=== PATIENT | female | born 1975 | race Hispanic/Latino ===

== ENCOUNTER 2017-12-30 17:57 | Emergency (ER) | payer OTHER ==
[2017-12-30] MEDS ORDERED: ASPIRIN PO ONE (18:17)
[2017-12-30] MEDS ORDERED: MORPHINE IV ONE ×3 (18:33→19:35)
[2017-12-30] MEDS ORDERED: ZOFRAN IV ONE (18:33)
--- NOTE | 2017-12-30 18:38 | Emergency Department Report ---
ED Chest Pain HPI - General Chief Complaint: Chest Pain Stated Complaint: CHESTPAIN Time Seen by Provider: 12/30/17 18:26 Source: patient Mode of arrival: Ambulatory Limitations: No Limitations - History of Present Illness Initial Comments: 42-year-old female with a history of hiatal hernia presents to the hospital with complaints of sudden onset of substernal chest pain. 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 Pain started 30-40 minutes prior to arrival, located in the mid sternum, moderate in intensity, dull, and intermittent. Associated left arm paresthesias. No aggravating reported. Chest pain feels better with stretching her chest wall. Positive associated nausea. She denies vomiting, shortness of breath, or diaphoresis. Patient quit smoking 10 years ago. She has never had a stress test, history of PEs or DVT. No recent travel reported. - Related Data Home Medications Medication Instructions Recorded Confirmed Last Taken Vits96/Iron Fum/Folic 1 each PO DAILY 12/27/13 12/27/13 12/27/13 [ Tablet] Previous Rx's Medication Instructions Recorded Last Taken Type Ibuprofen [Motrin] 800 mg PO Q8HR PRN #30 tablet 12/31/17 Unknown Rx oxyCODONE /ACETAMINOPHEN [Percocet 1 tab PO Q6HR PRN #20 tablet 12/31/17 Unknown Rx 5/325] Allergies Allergy/AdvReac Type Severity Reaction Status Date / Time promethazine AdvReac Unknown Verified 12/27/13 17:37 Heart Score - HEART Score History: Slightly suspicious EKG: Normal Age: < 45 Risk factors: No known risk factors Troponin: < normal limit HEART Score: 0 ED Review of Systems ROS: Stated complaint: CHESTPAIN Other details as noted in HPI Comment: All other systems reviewed and negative Other: Constitutional: No fevers chills Eyes: No eye pain visual changes ENT: No ear pain or throat pain Neck: Denies pain Respiratory: Denies cough wheezing shortness of breath Cardiovascular: As per HPI GI: Denies abdominal pain, vomiting, diarrhea : Denies dysuria, urinary frequency, or urgency Musculoskeletal: Denies back pain, joint swelling Skin: Denies rash, lesions, erythema Neurologic: Denies headache, numbness, weakness Psychiatric: Denies suicidal ideation, hallucinations ED Past Medical Hx - Past Medical History Previous Medical History?: No Additional medical history: - Surgical History Past Surgical History?: No - Social History Smoking Status: Never Smoker Substance Use Type: None - Medications Home Medications: Home Medications Medication Instructions Recorded Confirmed Last Taken Type Vits96/Iron Fum/Folic 1 each PO DAILY 12/27/13 12/27/13 12/27/13 History [ Tablet] Ibuprofen [Motrin] 800 mg PO Q8HR PRN #30 tablet 12/31/17 Unknown Rx oxyCODONE /ACETAMINOPHEN [Percocet 1 tab PO Q6HR PRN #20 tablet 12/31/17 Unknown Rx 5/325] ED Physical Exam - General Limitations: No Limitations - Other Other exam information: General: No limitations, patient is alert in no acute distress Head exam: Atraumatic, normocephalic Eyes exam: Normal appearance ENT: Moist mucous membrane, normal oropharynx Neck exam: Normal inspection, full range of motion, no meningismus nontender Respiratory exam: Clear to auscultation bilateral, no wheezes, rales, crackles Cardiovascular: Normal rate and rhythm, normal heart sounds, chest wall nontender Abdomen: Soft, nondistended, and nontender, with normal bowel sounds, no rebound, or guarding Extremity: Full range of motion normal inspection no deformity, mo calf tenderness or edema Back: Normal Inspection, full range of motion, no tenderness Neurologic: Alert, oriented x3, cranial nerves intact, no motor or sensory deficit Psychiatric: normal affect, normal mood Skin: Warm, dry, intact ED Course Vital Signs 12/30/17 12/30/17 12/30/17 18:10 18:15 18:30 Temperature Pulse Rate 63 70 64 Respiratory 22 12 12 Rate Blood Pressure 123/80 116/79 Blood Pressure [Left] O2 Sat by Pulse Oximetry 12/30/17 12/30/17 12/30/17 18:45 19:00 19:05 Temperature 98.1 F Pulse Rate 66 66 60 Respiratory 14 17 20 Rate Blood Pressure 117/87 119/83 Blood Pressure 141/86 [Left] O2 Sat by Pulse 100 Oximetry 12/30/17 12/30/17 12/30/17 19:15 19:30 19:45 Temperature Pulse Rate 62 66 82 Respiratory 13 13 13 Rate Blood Pressure 113/81 113/81 121/75 Blood Pressure [Left] O2 Sat by Pulse Oximetry 12/30/17 12/30/17 12/30/17 19:47 20:00 20:15 Temperature Pulse Rate 65 60 Respiratory 16 10 L 12 Rate Blood Pressure 105/68 100/72 Blood Pressure [Left] O2 Sat by Pulse Oximetry 12/30/17 12/30/17 12/30/17 20:22 20:27 20:30 Temperature 98.7 F Pulse Rate 75 Respiratory 12 13 Rate Blood Pressure 96/75 Blood Pressure [Left] O2 Sat by Pulse 100 Oximetry 12/30/17 12/30/17 12/30/17 20:37 20:45 20:49 Temperature Pulse Rate 67 Respiratory 16 13 16 Rate Blood Pressure 110/75 Blood Pressure [Left] O2 Sat by Pulse Oximetry 12/30/17 12/30/17 12/30/17 21:00 21:07 21:15 Temperature Pulse Rate 63 64 Respiratory 8 L 16 11 L Rate Blood Pressure 105/70 108/69 Blood Pressure [Left] O2 Sat by Pulse Oximetry 12/30/17 12/30/17 12/30/17 21:19 21:30 21:39 Temperature Pulse Rate 62 Respiratory 16 9 L 16 Rate Blood Pressure 102/67 Blood Pressure [Left] O2 Sat by Pulse Oximetry 12/30/17 12/30/17 12/30/17 21:45 22:00 22:15 Temperature Pulse Rate 61 73 70 Respiratory 8 L 15 11 L Rate Blood Pressure 99/63 105/72 102/68 Blood Pressure [Left] O2 Sat by Pulse Oximetry 12/30/17 12/30/17 12/30/17 22:30 22:39 22:45 Temperature Pulse Rate 64 66 Respiratory 13 12 11 L Rate Blood Pressure 98/64 113/79 Blood Pressure [Left] O2 Sat by Pulse Oximetry 12/30/17 12/30/17 12/30/17 23:00 23:15 23:30 Temperature Pulse Rate 67 61 58 L Respiratory 11 L 11 L 12 Rate Blood Pressure 103/73 102/59 101/57 Blood Pressure [Left] O2 Sat by Pulse Oximetry 12/30/17 12/31/17 23:45 00:57 Temperature Pulse Rate 67 Respiratory 13 15 Rate Blood Pressure 103/60 Blood Pressure [Left] O2 Sat by Pulse Oximetry - Reevaluation(s) Reevaluation #1: 12/30/17 18:38 Patient received aspirin, morphine, and Zofran ordered - Consultations Consultation #1: 12/31/17 01:21 Case d/w Dr Titi [facility], informed pt will be d/[facility] home. Encouraged to f/u with [facility] FABIAN score - Fabian Score Age > 65: (0) No Aspirin use within the Past 7 Days: (0) No 3 or more CAD Risk Factors: (0) No 2 or more Angina events in past 24 hrs: (0) No Known CAD with more than 50% Stenosis: (0) No Elevated Cardiac Markers: (0) No ST Deviation Greater than 0.5mm: (0) No FABIAN Score: 0 ED Medical Decision Making - Lab Data Result diagrams: 12/30/17 18:31 18 18:31 Lab Results 12/30/17 12/30/17 12/30/17 Range/Units 18:31 18:31 18:31 WBC 12.5 H (4.5-11.0) K/mm3 RBC 4.41 (3.65-5.03) M/mm3 Hgb 13.3 (10.1-14.3) gm/dl Hct 39.3 (30.3-42.9) % MCV 89 (79-97) fl MCH 30 (28-32) pg MCHC 34 (30-34) % RDW 13.1 L (13.2-15.2) % Plt Count 284 (140-440) K/mm3 Lymph % (Auto) 31.3 (13.4-35.0) % [place] % (Auto) 6.2 (0.0-7.3) % Eos % (Auto) 1.0 (0.0-4.3) % Baso % (Auto) 0.6 (0.0-1.8) % Lymph # 3.9 (1.2-5.4) K/mm3 [place] # 0.8 (0.0-0.8) K/mm3 Eos # 0.1 (0.0-0.4) K/mm3 Baso # 0.1 (0.0-0.1) K/mm3 Seg Neutrophils % 60.9 (40.0-70.0) % Seg Neutrophils # 7.6 (1.8-7.7) K/mm3 PT 12.3 (12.2-14.9) Sec. INR 0.87 (0.87-1.13) D-Dimer 331.12 H (0-234) ng/mlDDU Sodium 140 (137-145) mmol/L Potassium 4.0 (3.6-5.0) mmol/L Chloride 100.9 (98-107) mmol/L Carbon Dioxide 24 (22-30) mmol/L Anion Gap 19 mmol/L BUN 16 (7-17) mg/dL Creatinine 0.7 (0.7-1.2) mg/dL Estimated GFR > 60 ml/min BUN/Creatinine Ratio 23 % Glucose 89 (65-100) mg/dL Calcium 9.5 (8.4-10.2) mg/dL Troponin T < 0.010 (0.00-0.029) ng/mL Triglycerides (2-149) mg/dL Cholesterol (50-199) mg/dL LDL Cholesterol Direct (50-130) mg/dL HDL Cholesterol (40-59) mg/dL Cholesterol/HDL Ratio % HCG, Quant (0-4) mIU/mL 12/30/17 12/30/17 12/30/17 Range/Units 18:31 18:31 21:00 WBC (4.5-11.0) K/mm3 RBC (3.65-5.03) M/mm3 Hgb (10.1-14.3) gm/dl Hct (30.3-42.9) % MCV (79-97) fl MCH (28-32) pg MCHC (30-34) % RDW (13.2-15.2) % Plt Count (140-440) K/mm3 Lymph % (Auto) (13.4-35.0) % [place] % (Auto) (0.0-7.3) % Eos % (Auto) (0.0-4.3) % Baso % (Auto) (0.0-1.8) % Lymph # (1.2-5.4) K/mm3 [place] # (0.0-0.8) K/mm3 Eos # (0.0-0.4) K/mm3 Baso # (0.0-0.1) K/mm3 Seg Neutrophils % (40.0-70.0) % Seg Neutrophils # (1.8-7.7) K/mm3 PT (12.2-14.9) Sec. INR (0.87-1.13) D-Dimer (0-234) ng/mlDDU Sodium (137-145) mmol/L Potassium (3.6-5.0) mmol/L Chloride (98-107) mmol/L Carbon Dioxide (22-30) mmol/L Anion Gap mmol/L BUN (7-17) mg/dL Creatinine (0.7-1.2) mg/dL Estimated GFR ml/min BUN/Creatinine Ratio % Glucose (65-100) mg/dL Calcium (8.4-10.2) mg/dL Troponin T < 0.010 (0.00-0.029) ng/mL Triglycerides 132 (2-149) mg/dL Cholesterol 193 (50-199) mg/dL LDL Cholesterol Direct 128 (50-130) mg/dL HDL Cholesterol 39 L (40-59) mg/dL Cholesterol/HDL Ratio 4.94 % HCG, Quant < 2 (0-4) mIU/mL 12/31/17 Range/Units 00:46 WBC (4.5-11.0) K/mm3 RBC (3.65-5.03) M/mm3 Hgb (10.1-14.3) gm/dl Hct (30.3-42.9) % MCV (79-97) fl MCH (28-32) pg MCHC (30-34) % RDW (13.2-15.2) % Plt Count (140-440) K/mm3 Lymph % (Auto) (13.4-35.0) % [place] % (Auto) (0.0-7.3) % Eos % (Auto) (0.0-4.3) % Baso % (Auto) (0.0-1.8) % Lymph # (1.2-5.4) K/mm3 [place] # (0.0-0.8) K/mm3 Eos # (0.0-0.4) K/mm3 Baso # (0.0-0.1) K/mm3 Seg Neutrophils % (40.0-70.0) % Seg Neutrophils # (1.8-7.7) K/mm3 PT (12.2-14.9) Sec. INR (0.87-1.13) D-Dimer (0-234) ng/mlDDU Sodium (137-145) mmol/L Potassium (3.6-5.0) mmol/L Chloride (98-107) mmol/L Carbon Dioxide (22-30) mmol/L Anion Gap mmol/L BUN (7-17) mg/dL Creatinine (0.7-1.2) mg/dL Estimated GFR ml/min BUN/Creatinine Ratio % Glucose (65-100) mg/dL Calcium (8.4-10.2) mg/dL Troponin T < 0.010 (0.00-0.029) ng/mL Triglycerides (2-149) mg/dL Cholesterol (50-199) mg/dL LDL Cholesterol Direct (50-130) mg/dL HDL Cholesterol (40-59) mg/dL Cholesterol/HDL Ratio % HCG, Quant (0-4) mIU/mL - EKG Data -: EKG Interpreted by Me (sinus arrhythmia) EKG shows normal: sinus rhythm, axis (87), QRS complexes (83), ST-T waves (no ST elevation NM) Rate: normal (68) - EKG Data When compared to previous EKG there are: previous EKG unavailable 12/31/17 01:46 Repeat EKG in the ED shows normal sinus as well without any ST-T changes - Radiology Data Radiology results: report reviewed Bed by radiologist Chest x-ray: No acute processes CT angiogram chest: No acute process. 4 mm nodule right upper lobe. 3-6 month follow-up recommended - Medical Decision Making Patient's pain is atypical. Although not reproducible on exam it is affected by movement and certain positions. Patient also lacks significant associated symptoms. She has been more active playing with her child outside and perhaps that may have exacerbated her chest pain. Patient has had 3 negative cardiac enzymes, EKGs unchanged, no cardiac risk factors, and negative CT angiogram for PE or dissection. No acute emergent cause of chest pain identified at this time. Patient will be treated symptomatically with pain medication. - Differential Diagnosis NM, unstable angina, PE muscular skeletal pain, costochondritis, atypica Critical Care Time: No Critical care attestation.: If time is entered above; I have spent that time in minutes in the direct care of this critically ill patient, excluding procedure time. ED Disposition Clinical Impression: Atypical chest pain Disposition: DC-01 TO HOME OR SELFCARE Is pt being admited?: No Does the pt Need Aspirin: No Condition: Stable Instructions: Chest Pain (ED) Additional Instructions: Take the medication as prescribed. Return if symptoms worsen. Follow up with your [facility] doctor within 2-3 days. Your CAT scan incidentally shows a nodule in your right upper lung. You have been provided a copy of the report.You need to follow with your primary care doctor for follow-up CAT scan as recommended in 3-6 months Prescriptions: Ibuprofen [Motrin] 800 mg PO Q8HR PRN #30 tablet PRN Reason: Pain oxyCODONE /ACETAMINOPHEN [Percocet 5/325] 1 tab PO Q6HR PRN #20 tablet PRN Reason: Pain Referrals: Your, tracey ARANGO [Other] - 2-3 Days Time of Disposition: 01:46
[2017-12-30 18:49] LABS: Basophils # (Auto) 0.1 K/mm3 (0.0-0.1); Basophils % (Auto) 0.6 % (0.0-1.8); Eosinophils # (Auto) 0.1 K/mm3 (0.0-0.4); Hematocrit 39.3 % (30.3-42.9); Hemoglobin 13.3 gm/dl (10.1-14.3); Lymphocytes # (Auto) 3.9 K/mm3 (1.2-5.4); Lymphocytes % (Auto) 31.3 % (13.4-35.0); Mean Corpuscular HGB Conc 34 % (30-34); Mean Corpuscular Hemoglobin 30 pg (28-32); Mean Corpuscular Volume 89 fl (79-97); Monocytes # (Auto) 0.8 K/mm3 (0.0-0.8); Monocytes % (Auto) 6.2 % (0.0-7.3); Platelet Count 284 K/mm3 (140-440); Red Blood Count 4.41 M/mm3 (3.65-5.03); Red Cell Distribution Width 13.1 % (13.2-15.2)
[2017-12-30 18:57] LABS: INR 0.87 (0.87-1.13)
[2017-12-30 19:11] LABS: BUN/Creatinine Ratio 23; Blood Urea Nitrogen 16 mg/dL (7-17); Calcium 9.5 mg/dL (8.4-10.2); Hemolysis Index 14
[2017-12-30] MEDS ORDERED: NACL ONE (19:14)
[2017-12-30 19:15] LABS: Chol/HDL Ratio 4.94 %
[2017-12-30] MEDS ORDERED: TORADOL IV ONE (19:35)
--- NOTE | 2017-12-30 20:52 | Cat Scan Report ---
FINAL REPORT PROCEDURE: CT ANGIO CHEST TECHNIQUE: Computerized tomographic angiography of the chest was performed after the IV injection of iodinated nonionic contrast including image processing. The image data was postprocessed using 2-dimensional multiplanar reformatted (MPR) and 3-dimensional (MIP and/or volume rendered) techniques. HISTORY: cp, elevated ddimer COMPARISON: No prior studies are available for comparison. FINDINGS: Heart and pericardium: Normal. Thoracic aorta: Normal. Pulmonary vasculature: Normal. Lymph nodes: No enlarged thoracic lymph nodes. Lungs: 4 millimeter nodule is noted in the right upper lobe as visualized image 43 of series 3. There are no confluent infiltrates. Pleural spaces are clear. Hilar structures are within normal limits. Aorta is of normal caliber. Visualized thyroid demonstrates normal density. There is no lymphadenopathy.. Pleural space: No effusion, thickening, or pneumothorax. Musculoskeletal structures: No significant abnormality. Upper abdominal structures: No significant abnormality. IMPRESSION: No acute pulmonary process. 4 millimeter nodule right upper lobe. 3 to six-month follow-up study is recommended.
--- NOTE | 2017-12-30 21:03 | XRay Report ---
FINAL REPORT EXAM: XR CHEST 1V AP HISTORY: CP TECHNIQUE: AP portable view of the chest PRIORS: None. FINDINGS: Lines, tubes, and devices: N/A Lungs and pleura: Trachea is normal in position. Lungs are clear of infiltrate, pleural effusion, vascular congestion, or pneumothorax. Cardiomediastinal silhouette: Cardiac and mediastinal silhouettes are unremarkable. Other: Bony structures are intact. IMPRESSION: No acute cardiopulmonary process seen.
[2017-12-30] MEDS ORDERED: NORCO 5/325 PO ONE (21:19)
[2017-12-31] MEDS ORDERED: PERCOCET 5/325 PO ONE (00:49)
[2017-12-31 01:54] VITALS: BP 111/66
== END 2017-12-31 02:02 | disposition home or self-care (01) ==
LOC: ED 17:57
DX: R07.89 Other chest pain (principal); Z88.8 Allergy status to other drugs, medicaments and biological substances
CPT/HCPCS: 36415; 71045; 71275; 80048; 80061; 84484; 84702; 85025; 85379; 85610; 93005; 93010; 96374; 96375; 96376; 99285; J1885; J2270; J2405; Q9967

== ENCOUNTER 2019-10-03 10:10 | Emergency (ER) | payer OTHER ==
[2019-10-03 10:47] LABS: Basophils # (Auto) 0.1 K/mm3 (0.0-0.1); Basophils % (Auto) 0.7 % (0.0-1.8); Eosinophils # (Auto) 0.2 K/mm3 (0.0-0.4); Eosinophils % (Auto) 2.4 % (0.0-4.3); Hematocrit 38.1 % (30.3-42.9); Hemoglobin 12.8 gm/dl (10.1-14.3); Lymphocytes # (Auto) 1.4 K/mm3 (1.2-5.4); Lymphocytes % (Auto) 20.5 % (13.4-35.0); Mean Corpuscular HGB Conc 34 % (30-34); Mean Corpuscular Volume 92 fl (79-97); Monocytes # (Auto) 0.5 K/mm3 (0.0-0.8); Platelet Count 310 K/mm3 (140-440); Red Blood Count 4.16 M/mm3 (3.65-5.03); Red Cell Distribution Width 13.1 % (13.2-15.2)
--- NOTE | 2019-10-03 10:48 | XRay Report ---
CHEST 1 VIEW 10/03/2019 10:31 AM INDICATION / CLINICAL INFORMATION: Chest Pain. COMPARISON: 12/30/2017 FINDINGS: SUPPORT DEVICES: None. HEART / MEDIASTINUM: No significant abnormality. LUNGS / PLEURA: No significant pulmonary or pleural abnormality. No pneumothorax. ADDITIONAL FINDINGS: No significant additional findings. IMPRESSION: 1. No acute findings. Signer Name: Breezy Pacheco MD Signed: 10/03/2019 10:44 AM Workstation Name: [id number]
[2019-10-03 10:56] LABS: INR 1.27 (0.87-1.13)
[2019-10-03 10:57] LABS: Partial Thromboplastin Time 34.4 Sec. (24.2-36.6)
--- NOTE | 2019-10-03 11:04 | Emergency Department Report ---
ED Chest Pain HPI - General Chief Complaint: Chest Pain Stated Complaint: CHEST PAIN Time Seen by Provider: 10/03/19 10:27 Source: patient Mode of arrival: Wheelchair Limitations: No Limitations - History of Present Illness Initial Comments: Patient is a 43-year-old female Emergency room with complaints of chest pain. Patient states she is having bilateral chest pain. Patient states she is also having left arm numbness. Patient states her chest pain is better with rest. Patient states her chest pain is worse with deep breath, exertion, movement and palpation of the chest wall. Patient states the pain is a 10 out of 10. Patient states she was diagnosed with bilateral pulmonary was at [facility] and discharged 2 days ago. Patient states she was in the hospital for 2 days. Patient denies shortness of breath. Patient denies cough. Patient denies fever chills. Patient states after being discharged she returned to work the very next day. Patient states she is on Eliquise and is taking it as instructed. Patient states she brought some of her results from [facility]. Patient has a copy of her CTA chest and her echo. CTA of chest results impression: #1. Study of positive bilateral acute pulmonary there are filling defects within the bilateral lower lobe pulmonary arteries extending into the segmental branches. There is occlusive thrombus within the posterior basal segment and the subsegmental branches of the right lower lobe. #2. Small right pleural effusion and developing pulmonary infarction in the right lower lobe. #3. No central sidled was identified nose CT evidence of right heart strain. Echo results: LV normal size. LV wall thickness normal. LV wall motion normal. LV EF is 67%. LV EF normal. Normal LV diastolic function. MD Complaint: chest pain -: Sudden Onset: during rest Pain Location: left chest, right chest Severity: severe Severity scale (0 -10): 10 Quality: sharp Consistency: constant Improves With: rest Worsens With: exertion, inspiration, palpation, movement re: denies: nausea, vomting, diaphoresis, dyspnea, sense of impending doom Other Symptoms: denies: cough, fever, syncope, rash, acid taste in mouth, leg swelling, palpitations, burping Treatments Prior to Arrival: none Aspirin use within the Past 7 Days: (0) No - Related Data On Oral Contraceptives: No Home Medications Medication Instructions Recorded Confirmed Last Taken Vits96/Iron Fum/Folic 1 each PO DAILY 12/27/13 12/27/13 12/27/13 [ Tablet] Previous Rx's Medication Instructions Recorded Last Taken Type Ibuprofen [Motrin] 800 mg PO Q8HR PRN #30 tablet 12/31/17 Unknown Rx methylPREDNISolone [Medrol 4MG 4 mg PO DAILY 6 Days #1 tab.ds.pk 10/03/19 Unknown Rx DOSEPAK (21 tabs)] oxyCODONE /ACETAMINOPHEN [Percocet 1 tab PO Q6HR PRN #15 tablet 10/03/19 Unknown Rx 5/325 mg] Allergies Allergy/AdvReac Type Severity Reaction Status Date / Time promethazine AdvReac Unknown Verified 12/27/13 17:37 Heart Score - HEART Score History: Slightly suspicious EKG: Normal Age: < 45 Risk factors: No known risk factors Troponin: < normal limit HEART Score: 0 ED Review of Systems ROS: Stated complaint: CHEST PAIN Other details as noted in HPI Constitutional: denies: chills, fever Eyes: denies: eye pain, eye discharge, vision change ENT: denies: ear pain, throat pain Respiratory: denies: cough, shortness of breath, wheezing Cardiovascular: chest pain. denies: palpitations Endocrine: no symptoms reported Gastrointestinal: denies: abdominal pain, nausea, diarrhea Genitourinary: denies: urgency, dysuria, discharge Musculoskeletal: denies: back pain, joint swelling, arthralgia Skin: denies: rash, lesions Neurological: denies: headache, weakness, paresthesias Psychiatric: denies: anxiety, depression Hematological/Lymphatic: denies: easy bleeding, easy bruising ED Past Medical Hx - Past Medical History Previous Medical History?: Yes Hx Pulmonary Embolism: Yes Additional medical history: - Surgical History Past Surgical History?: No - Family History Family history: no significant - Social History Smoking Status: Never Smoker Substance Use Type: None - Medications Home Medications: Home Medications Medication Instructions Recorded Confirmed Last Taken Type Vits96/Iron Fum/Folic 1 each PO DAILY 12/27/13 12/27/13 12/27/13 Histor y [ Tablet] Ibuprofen [Motrin] 800 mg PO Q8HR PRN #30 tablet 12/31/17 Unknown Rx methylPREDNISolone [Medrol 4MG 4 mg PO DAILY 6 Days #1 tab.ds.pk 10/03/19 Unknown Rx DOSEPAK (21 tabs)] oxyCODONE /ACETAMINOPHEN [Percocet 1 tab PO Q6HR PRN #15 tablet 10/03/19 Unknown Rx 5/325 mg] ED Physical Exam - General Limitations: No Limitations General appearance: alert, in no apparent distress - Head Head exam: Present: atraumatic, normocephalic - Eye Eye exam: Present: normal appearance - ENT ENT exam: Present: mucous membranes moist - Neck Neck exam: Present: normal inspection - Respiratory Respiratory exam: Present: normal lung sounds bilaterally, chest wall tenderness. Absent: respiratory distress, wheezes, rales, rhonchi, stridor, accessory muscle use, decreased breath sounds, prolonged expiratory - Cardiovascular Cardiovascular Exam: Present: regular rate, normal rhythm. Absent: systolic murmur, diastolic murmur, rubs, gallop - GI/Abdominal GI/Abdominal exam: Present: soft, normal bowel sounds - Extremities Exam Extremities exam: Present: normal inspection - Back Exam Back exam: Present: normal inspection - Neurological Exam Neurological exam: Present: alert, oriented X3 - Psychiatric Psychiatric exam: Present: normal affect, normal mood - Skin Skin exam: Present: warm, dry, intact, normal color. Absent: rash ED Course Vital Signs 10/03/19 10/03/19 10/03/19 10:14 10:54 13:16 Pulse Rate 67 69 Respiratory 12 14 13 Rate Blood Pressure 107/84 116/62 [Left] O2 Sat by Pulse 99 97 Oximetry - Reevaluation(s) Reevaluation #1: Initial evaluation done. Patient brought some of her medical records from [facility]. Patient discharged from [facility] 2 days ago. Patient diagnosed with bilateral PEs. Patient is currently on a liquids. Patient taking as instructed. Patient also has a echo which shows a normal echo. 10/03/19 11:00 Reevaluation #2: Patient states her pain has resolved. Patient is stable for discharge. Patient will be discharged home. Patient given discharge instructions. Patient voiced understanding of discharge instructions. I discussed all results with patient. I discussed plan of care with patient. Patient agrees plan of care. 10/03/19 12:34 - Consultations Consultation #1: I discussed case with Dr. Morris, superintendent commissary. Dr. Morris states this is pleurisy and is secondary to the inflammation within the embolism sites and recommends prednisone as well as a site Medrol injection here. 10/03/19 11:43 VÍCTOR score - Víctor Score Age > 65: (0) No Aspirin use within the Past 7 Days: (0) No 3 or more CAD Risk Factors: (0) No 2 or more Angina events in past 24 hrs: (0) No Known CAD with more than 50% Stenosis: (0) No Elevated Cardiac Markers: (0) No ST Deviation Greater than 0.5mm: (0) No VÍCTOR Score: 0 ED Medical Decision Making - Lab Data Result diagrams: 10/03/19 10:31 10/03/19 10:31 - EKG Data -: EKG Interpreted by [place] EKG shows normal: sinus rhythm, axis, intervals, QRS complexes, ST-T waves Rate: normal - Radiology Data Radiology results: report reviewed CHEST 1 VIEW 10/03/2019 10:31 AM INDICATION / CLINICAL INFORMATION: Chest Pain. COMPARISON: 12/30/2017 FINDINGS: SUPPORT DEVICES: None. HEART / MEDIASTINUM: No significant abnormality. LUNGS / PLEURA: No significant pulmonary or pleural abnormality. No pneumothorax. ADDITIONAL FINDINGS: No significant additional findings. IMPRESSION: 1. No acute findings. - Medical Decision Making Patient is a 43-year-old female that presents emergency room of bilateral chest pain. Patient's chest pain is worse on the right. Patient found to have chest tenderness. Patient's also found to have increased chest pain with deep breath. Patient's clinical findings consistent with pleurisy. Patient's labs unremarkable. Patient's chest x-ray negative. Patient's EKG negative. Patient had a recent diagnosis of a PE and was discharged 2 days ago from [facility]. Patient return to work immediately after discharge. Patient came in today from work. Patient's given site Medrol in the ER and her pain decreased. Patient responded well to therapy and was pain and a symptomatically prior to discharge. Patient had no complaints of shortness of breath. I discussed the case with our superintendent commissary and he agrees that the patient is having symptoms of pleurisy and recommends steroids and prednisone and to continue eliquis. - Differential Diagnosis pleurisy. Chest pain. Critical care attestation.: If time is entered above; I have spent that time in minutes in the direct care of this critically ill patient, excluding procedure time. ED Disposition Clinical Impression: Chest wall tenderness, Pleurisy Chest pain Qualifiers: Chest pain type: unspecified Qualified Code(s): R07.9 - Chest pain, unspecified Pulmonary embolism Qualifiers: Pulmonary embolism type: unspecified Chronicity: acute Acute cor pulmonale presence: without acute cor pulmonale Qualified Code(s): I26.99 - Other pulmonary embolism without acute cor pulmonale Disposition: TO HOME OR SELFCARE Is pt being admited?: No Does the pt Need Aspirin: No Condition: Stable Instructions: Chest Pain (ED), Pulmonary Embolism (GEN), Pleurisy (ED), Costochondritis (ED) Additional Instructions: Patient to follow up with primary care in 2-3 days. Based follow up with superintendent commissary to 2 days. Patient to return to the ER if condition worsens. Patient to rest. Patient to take off work until cleared by superintendent commissary and primary care. Patient to continue eliquis. Patient to rest. Patient to return to ER if condition worsens. Patient take Tylenol when necessary for pain. Patient take meds as directed. Prescriptions: methylPREDNISolone [Medrol 4MG DOSEPAK (21 tabs)] 4 mg PO DAILY 6 Days #1 tab.ds.pk oxyCODONE /ACETAMINOPHEN [Percocet 5/325 mg] 1 tab PO Q6HR PRN #15 tablet PRN Reason: Pain Referrals: PRIMARY CARE, [Primary Care Provider] - 2-3 Days ANISHA MORRIS MD [Staff Physician] - 2-3 Days Time of Disposition: 11:43
[2019-10-03] MEDS ORDERED: HYDROmorphone 1 MG/1 ML INJ IV ONE ×2 (11:06→11:59)
[2019-10-03 11:12] LABS: BUN/Creatinine Ratio 13; Blood Urea Nitrogen 9 mg/dL (7-17); Calcium 8.7 mg/dL (8.4-10.2); Hemolysis Index 7
[2019-10-03] MEDS ORDERED: methylPREDNISolone Sod Succinate 125 MG/2 ML INJ IV ONE (11:41)
[2019-10-03 13:16] VITALS: BP 116/62
== END 2019-10-03 13:14 | disposition home or self-care (01) ==
LOC: ED 10:10
DX: I26.99 Other pulmonary embolism without acute cor pulmonale (principal); R09.1 Pleurisy; Z86.711 Personal history of pulmonary embolism; Z79.01 Long term (current) use of anticoagulants; Z88.8 Allergy status to other drugs, medicaments and biological substances
CPT/HCPCS: 36415; 71045; 80048; 84484; 85025; 85610; 85730; 93005; 93010; 96374; 96375; 96376; 99284; J1170; J2930

== ENCOUNTER 2020-02-11 09:24 | Emergency (ER) | payer BC, OTHER ==
--- NOTE | 2020-02-11 10:15 | Emergency Department Report ---
ED Chest Pain HPI - General Chief Complaint: Chest Pain Stated Complaint: CP Time Seen by Provider: 02/11/20 10:11 Source: patient Mode of arrival: Ambulatory Limitations: No Limitations - History of Present Illness Initial Comments: Mrs. Hurley is a 44-year-old female with history of pulmonary embolism currently taking Eliquis who presents with dull chest pain worse with exertion expiration. Mild constant pain. Pain is at rest. No radiation. No shortness of breath. Past surgical history tubal ligation Complaint: chest pain -: Gradual, days(s) (3-4) Onset: during rest, during exertion Pain Location: substernal Pain Radiation: none Severity: mild Severity scale (0 -10): 4 Quality: dull Consistency: constant Improves With: nothing Worsens With: exertion, inspiration - Related Data Home Medications Medication Instructions Recorded Confirmed Last Taken Vits96/Iron Fum/Folic 1 each PO DAILY 12/27/13 12/27/13 12/27/13 [ Tablet] Previous Rx's Medication Instructions Recorded Last Taken Type Ibuprofen [Motrin] 800 mg PO Q8HR PRN #30 tablet 12/31/17 Unknown Rx methylPREDNISolone [Medrol 4MG 4 mg PO DAILY 6 Days #1 tab.ds.pk 10/03/19 Unknown Rx DOSEPAK (21 tabs)] oxyCODONE /ACETAMINOPHEN [Percocet 1 tab PO Q6HR PRN #15 tablet 10/03/19 Unknown Rx 5/325 mg] Allergies Allergy/AdvReac Type Severity Reaction Status Date / Time promethazine AdvReac Unknown Verified 02/11/20 09:32 Heart Score - HEART Score History: Slightly suspicious EKG: Normal Age: < 45 Risk factors: No known risk factors Troponin: < normal limit HEART Score: 0 ED Review of Systems ROS: Stated complaint: CP Other details as noted in HPI Comment: All other systems reviewed and negative Constitutional: denies: fever Respiratory: denies: cough, shortness of breath Cardiovascular: chest pain ED Past Medical Hx - Past Medical History Previous Medical History?: Yes Hx Pulmonary Embolism: Yes Additional medical history: - Surgical History Past Surgical History?: No - Social History Smoking Status: Never Smoker - Medications Home Medications: Home Medications Medication Instructions Recorded Confirmed Last Taken Type Vits96/Iron Fum/Folic 1 each PO DAILY 12/27/13 12/27/13 12/27/13 History [ Tablet] Ibuprofen [Motrin] 800 mg PO Q8HR PRN #30 tablet 12/31/17 Unknown Rx methylPREDNISolone [Medrol 4MG 4 mg PO DAILY 6 Days #1 tab.ds.pk 10/03/19 Unknown Rx DOSEPAK (21 tabs)] oxyCODONE /ACETAMINOPHEN [Percocet 1 tab PO Q6HR PRN #15 tablet 10/03/19 Unknown Rx 5/325 mg] ED Physical Exam - General Limitations: No Limitations General appearance: alert, in no apparent distress - Head Head exam: Present: atraumatic, normocephalic - Eye Eye exam: Present: normal appearance - ENT ENT exam: Present: mucous membranes moist - Neck Neck exam: Present: normal inspection, full ROM - Respiratory Respiratory exam: Present: normal lung sounds bilaterally. Absent: respiratory distress, wheezes, rales, rhonchi - Cardiovascular Cardiovascular Exam: Present: regular rate, normal rhythm, normal heart sounds. Absent: systolic murmur, diastolic murmur, rubs, gallop - GI/Abdominal GI/Abdominal exam: Present: soft, normal bowel sounds. Absent: distended, te nderness, guarding, rebound - Extremities Exam Extremities exam: Present: normal inspection - Neurological Exam Neurological exam: Present: alert, oriented X3 - Psychiatric Psychiatric exam: Present: normal affect, normal mood - Skin Skin exam: Present: warm, dry, intact, normal color. Absent: rash ED Course Vital Signs 02/11/20 02/11/20 02/11/20 09:38 12:07 12:46 Temperature 98.9 F Pulse Rate 83 71 Respiratory 20 18 18 Rate Blood Pressure 115/69 Blood Pressure 103/66 [Left] O2 Sat by Pulse 98 97 Oximetry VÍCTOR score - Víctor Score Age > 65: (0) No Aspirin use within the Past 7 Days: (0) No 3 or more CAD Risk Factors: (0) No 2 or more Angina events in past 24 hrs: (0) No Known CAD with more than 50% Stenosis: (0) No Elevated Cardiac Markers: (0) No ST Deviation Greater than 0.5mm: (0) No VÍCTOR Score: 0 ED Medical Decision Making - Lab Data Result diagrams: 02/11/20 10:43 02/11/20 10:43 - EKG Data EKG shows normal: sinus rhythm, axis, intervals, QRS complexes, ST-T waves Rate: normal - Radiology Data Radiology results: report reviewed Chest x-ray PA and lateral: No acute findings including radiology report. - Medical Decision Making Ms. Morales is a 44-year-old female who presents with chest pain. Heart score [address] angiogram without acute pulmonary embolism. Refer to shuttle fixer for outpatient work-up. I do not suspect acute urinary syndrome however patient will need thorough evaluation for recurrent chest pain for the past 2 years. Critical care attestation.: If time is entered above; I have spent that time in minutes in the direct care of this critically ill patient, excluding procedure time. ED Disposition Clinical Impression: Chest pain Disposition: DC-01 TO HOME OR SELFCARE Is pt being admited?: No Does the pt Need Aspirin: No Condition: Stable Instructions: Chest Pain (ED) Referrals: KEITH KAY DO [Primary Care Provider] - 3-5 Days
[2020-02-11 10:56] LABS: Basophils % (Auto) 0.5 % (0.0-1.8); Eosinophils # (Auto) 0.2 K/mm3 (0.0-0.4); Eosinophils % (Auto) 2.7 % (0.0-4.3); Hematocrit 36.6 % (30.3-42.9); Hemoglobin 12.2 gm/dl (10.1-14.3); Lymphocytes # (Auto) 2.2 K/mm3 (1.2-5.4); Lymphocytes % (Auto) 25.8 % (13.4-35.0); Mean Corpuscular HGB Conc 33 % (30-34); Mean Corpuscular Volume 87 fl (79-97); Monocytes # (Auto) 0.7 K/mm3 (0.0-0.8); Monocytes % (Auto) 8.6 % (0.0-7.3); Platelet Count 278 K/mm3 (140-440); Red Blood Count 4.22 M/mm3 (3.65-5.03); Red Cell Distribution Width 13.7 % (13.2-15.2)
[2020-02-11 11:20] LABS: Alanine Aminotransferase 11 units/L (7-56); Albumin 3.9 g/dL (3.9-5); BUN/Creatinine Ratio 19; Blood Urea Nitrogen 13 mg/dL (7-17); Calcium 8.9 mg/dL (8.4-10.2); Hemolysis Index 4
--- NOTE | 2020-02-11 11:23 | XRay Report ---
CHEST 2 VIEWS INDICATION / CLINICAL INFORMATION: Pleuritic chest pain. COMPARISON: None available. FINDINGS: SUPPORT DEVICES: None. HEART / MEDIASTINUM: No significant abnormality. LUNGS / PLEURA: No significant pulmonary or pleural abnormality. .No pneumothorax. ADDITIONAL FINDINGS: No significant additional findings. IMPRESSION: 1. No acute findings. Signer Name: Jatinder Acosta MD Signed: 02/11/2020 11:19 AM Workstation Name: [id number]
[2020-02-11] MEDS ORDERED: ACETAMINOPHEN 500 MG TAB PO ONE (12:34)
--- NOTE | 2020-02-11 12:50 | Cat Scan Report ---
CTA of the chest with 3D Reconstruction Indication: ,chest pain hx of PE Technique: TECHNIQUE: Axial CT images were obtained through the chest after injection of 100 cc Omnipaque 350 IV contrast. 3 plane MIP reconstructions were produced. All CT scans at this location are performed usi ng CT dose reduction for ALARA by means of automated exposure control. COMPARISON: CT scan dated 12/30/2017 Automatic exposure control was utilized in an attempt to reduce radiation dose. Findings: Pulmonary arteries: The main pulmonary artery and right and left pulmonary artery branches fill satis factorily with contrast. No pulmonary embolus is seen. Lungs: There is a 4 mm nodule in the right upper lobe, series 3 image 160. This is unchanged from the prior study dated 12/30/2017 and therefore considered benign. No new pulmonary abnormalities are seen . No focal infiltrate is seen. Mediastinum: Heart size is normal. No adenopathy is seen. Aorta: Normal in diameter. No dissection seen within limits of this exam. Impression: No pulmonary embolus is seen Signer Name: Jatinder Acosta MD Signed: 02/11/2020 12:46 PM Workstation Name: [id number]
[2020-02-11 12:58] VITALS: BP 107/72
[2020-02-11] MEDS ORDERED: ZIPRASIDONE MESYLATE 20 MG VIAL IM ONE (13:41)
== END 2020-02-11 13:10 | disposition home or self-care (01) ==
LOC: ED 09:24
DX: R07.82 Intercostal pain (principal)
CPT/HCPCS: 36415; 71046; 71275; 80053; 84484; 85025; 85379; 93005; 93010; 99284; J3486; Q9967

== ENCOUNTER 2020-03-15 17:31 | Emergency (ER) | payer BC ==
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
[2020-03-15] MEDS ORDERED: ONDANSETRON 4 MG/2 ML INJ IV ONE (18:03)
[2020-03-15] MEDS ORDERED: MORPHINE 4 MG/1 ML INJ IV ONE ×2 (18:03→18:24)
--- NOTE | 2020-03-15 18:20 | XRay Report ---
RIGHT SHOULDER 2 VIEWS INDICATION / CLINICAL INFORMATION: pain r/t injury. COMPARISON: None available. FINDINGS: Standard imaging was not possible, so inflammation from these 2 images is limited. There is an obvious distal clavicular fracture. There may well be dislocation of the humeral head, po ssibly posteriorly, but this is impossible to ascertain on these images. CT may be necessary. Signer Name: Justin Licona MD Signed: 03/15/2020 6:16 PM Workstation Name: [id number]
[2020-03-15] MEDS ORDERED: HYDROmorphone 1 MG/1 ML INJ IV ONE ×2 (18:55→19:57)
[2020-03-15 19:00] VITALS: BP 133/84
--- NOTE | 2020-03-15 19:52 | Cat Scan Report ---
CT of the right shoulder without IV contrast INDICATION / CLINICAL INFORMATION: possible posterior shoulder dislocation. Right shoulder pain TECHNIQUE: Routine CT of the right shoulder without IV contrast All CT scans at this location are performed rudolph garnica CT dose reduction for SIDRA by means of automated exposure control. COMPARISON: None available. FINDINGS: There is a severely comminuted fracture involving the distal right clavicle with extension to the AC joint. No AC joint disruption appreciated. No glenohumeral dislocation. No visualized humeral fractur e or glenoid fracture identified. The acromion appears intact. IMPRESSION: Comminuted fracture to the distal right clavicle with extension to the AC joint. No glenohumeral disl ocation or glenoid fracture appreciated. Signer Name: Zeeshan Bojorquez MD Signed: 03/15/2020 7:48 PM Workstation Name: [id number]
[2020-03-15] MEDS ORDERED: oxyCODONE /ACETAMINOPHEN 5-325MG TAB PO ONE (20:30)
[2020-03-15] MEDS ORDERED: IBUPROFEN 800 MG TAB PO ONE (20:30)
== END 2020-03-15 21:41 | disposition home or self-care (01) ==
LOC: ED 17:31
DX: S42.001A Fracture of unspecified part of right clavicle, initial encounter for closed fracture (principal); S80.211A Abrasion, right knee, initial encounter; Z79.899 Other long term (current) drug therapy; Z88.8 Allergy status to other drugs, medicaments and biological substances; Z98.51 Tubal ligation status; V86.05XA Driver of 3- or 4- wheeled all-terrain vehicle (ATV) injured in traffic accident, initial encounter; Y93.89 Activity, other specified; Y92.89 Other specified places as the place of occurrence of the external cause; Y99.8 Other external cause status
CPT/HCPCS: 73030; 73200; 96374; 96375; 96376; 99284; J1170; J2270; J2405

== ENCOUNTER 2020-03-19 10:42 | Day surgery (SDC) | payer BC ==
[~2020-03-19 10:42] MED LIST: LACTATED RINGERS 1,000 ML IV SCH; MIDAZOLAM 2 MG/2 ML INJ IV SCH; ceFAZolin/Water 2 GM/20 ML 2 GM/20 ML SYRINGE IV NR; fentaNYL 100 MCG/2 ML INJ IV SCH
--- NOTE | 2020-03-19 11:37 | Anesthesia Consultation ---
Anesthesia Consult and Med Hx - Airway Anesthetic Teeth Evaluation: Good ROM Head & Neck: Adequate Mental/Hyoid Distance: Adequate Mallampati Class: Class I Intubation Access Assessment: Good - Pulmonary Exam CTA: Yes - Cardiac Exam Cardiac Exam: RRR - Pre-Operative Health Status ASA Pre-Surgery Classification: ASA2 Proposed Anesthetic Plan: General Nerve Block: Right Interscalene/Brachial Plexus Block - Pulmonary Hx Smoking: Yes (STOPPED X 11 YRS) Hx Respiratory Symptoms: Yes (PE Aug 2019, on eliquis off now) Hx Sleep Apnea: No (PAULINA PRE SCREEN NEGATIVE) - Cardiovascular System Hx Hypertension: No - Other Systems Hx Cancer: No
--- NOTE | 2020-03-19 11:38 | Anesthesia Day of Surgery ---
Anesthesia Day of Surgery - Day of Surgery Patient Examined: Yes Patient H&P Reviewed: Yes Patient is NPO: Yes
[2020-03-19] MEDS ORDERED: ROPIVACAINE/PF (0.5%) 5 MG/1 ML 30 ML VIAL ONE (11:41)
[2020-03-19] MEDS ORDERED: HYDROmorphone 1 MG/1 ML INJ IV PRN (12:24)
[2020-03-19] MEDS ORDERED: ONDANSETRON 4 MG/2 ML INJ IV PRN (12:24)
--- NOTE | 2020-03-19 12:24 | Event Note ---
Date: 03/19/20 Block Note Right Interscalene/Brachial Plexus After time out, the area was prepped and draped in the usual fashion. Versed 2 mg and Fentanyl 100 mcg given iv. US guidance and stimulation at 0.5 mAMP. 20 ml of 0.5 % Ropivacaine in 5 ml increments and negative aspiration for blood. VSS. Pt tolerated procedure well. Image in the chart.
[2020-03-19] MEDS ORDERED: BUPIVACAINE-EPINEPHRINE/PF 0.5%-1:200,000 (30 ML) VIAL INFILTRATI ONE (12:37)
[2020-03-19] MEDS ORDERED: NEOMY 40 MG/POLYMYXIN B 200,000 UNITS/ML (GU) AMPULE IR ONE ×2 (12:37→14:22)
[2020-03-19] MEDS ORDERED: ROCURONIUM 50 MG/5 ML INJ IV ONE (12:40)
[2020-03-19] MEDS ORDERED: fentaNYL 100 MCG/2 ML INJ ONE (12:40)
[2020-03-19] MEDS ORDERED: LIDOCAINE MPF (2%) 20 MG/1 ML VIAL 5 ML ONE (12:40)
[2020-03-19] MEDS ORDERED: propofoL 200 MG/20 ML VIAL IV ONE (12:41)
[2020-03-19] MEDS ORDERED: NEOSTIGMINE 10MG/10 ML INJ MDV ONE (13:00)
[2020-03-19] MEDS ORDERED: diphenhydrAMINE 50 MG/ML VIAL IV ONE (13:00)
[2020-03-19] MEDS ORDERED: KETOROLAC 30 MG/1 ML INJ ONE (13:00)
[2020-03-19] MEDS ORDERED: GLYCOPYRROLATE 0.4 MG/2 ML INJ ONE (13:00)
[2020-03-19 13:37] LABS: INR 1.01 (0.87-1.13)
[2020-03-19 13:38] LABS: Partial Thromboplastin Time 28.1 Sec. (24.2-36.6)
[2020-03-19] MEDS ORDERED: dexAMETHasone 20 MG/5 ML VIAL ONE (14:03)
[2020-03-19] MEDS ORDERED: METOCLOPRAMIDE 10 MG/2 ML INJ ONE (14:03)
[2020-03-19] MEDS ORDERED: ONDANSETRON 4 MG/2 ML INJ ONE (14:03)
[2020-03-19] MEDS ORDERED: LACTATED RINGERS 1,000 ML ONE (14:12)
[2020-03-19] MEDS ORDERED: PHENYLEPHRINE/NS 1,000 MCG/10 ML SYRINGE (OR USE) IV ONE (14:12)
[2020-03-19] MEDS ORDERED: SODIUM CHLORIDE 0.9% IRR 1,500 ML BOTTLE IR ONE (14:22)
--- NOTE | 2020-03-19 14:55 | Procedure Note ---
Date of procedure: 03/19/20 Pre-op diagnosis: Displaced right distal clavicle fracture Post-op diagnosis: same Procedure: Open reduction internal fixation right clavicle fracture Procedure The patient was brought to the OR after being given a interscalene nerve block for postop pain management in preop holding, she was placed on the OR table in a supine position following induction with MAC anesthesia the patient's right shoulder and upper extremity was prepped in a routine sterile manner. A timeout procedure was done to identify the patient and the correct operative site. Using the superior approach an incision was made along the distal clavicle lengthwise this is taken down sharply through skin subcu and down to periosteum the fracture fragments were identified patient was noted to have 3 fracture fragments using manipulation and bone-holding forceps the proximal fragment was secured via interfragmentary screw attention was turned to the butterfly fragment again using the reduction technique the fracture was reduced and was held by way of a second interfragmentary screw following stabilization of the 2 fracture comminuted pieces the distal fragment was reapproximated and held in place via a 6 hole locked distal clavicle plate screws of various lengths were used to secure the plate as well an AP and oblique views were obtained showing good reduction at the fracture and placement of the hardware. The wound was then copiously irrigated was closed in a standard routine fashion postop dressings were applied the patient tolerated the procedure and there were no complications he was taken to postanesthesia recovery in a stable condition Anesthesia: MAC, regional Surgeon: GERI COY Review Coordinator: NELSON JACKSON Estimated blood loss: 50-100ml Pathology: none Condition: stable Disposition: PACU
--- NOTE | 2020-03-19 16:16 | Post Anesthesia Evaluation ---
- Post Anesthesia Evaluation Patient Participated: Yes Airway Patent: Yes Stable Respiratory Function: Yes Nausea/Vomiting: No Temp > 96.8F: Yes Pain Manageable: Yes Adequeate Hydration: Yes Anesthesia Complications: No
[2020-03-19 17:13] VITALS: BP 112/67
--- NOTE | 2020-03-19 17:29 | XRay Report ---
INTRAOPERATIVE FLUOROSCOPY: RIGHT CLAVICLE INDICATION / CLINICAL INFORMATION: RT CLAVICLE FX. TECHNIQUE: Intraoperative spot images were obtained during the procedure. FINDINGS: Single image shows internal fixation of the right lateral clavicle. Fluoroscopy Time: 26 seconds. Fluoroscopy Images: 1. Signer Name: Breezy Pacheco MD Signed: 03/19/2020 5:24 PM Workstation Name: [id number]
== END 2020-03-19 10:43 | disposition home or self-care (01) ==
LOC: OR 10:42
PROVIDERS: ATTEND Orthopaedic Surgery
DX: S42.031A Displaced fracture of lateral end of right clavicle, initial encounter for closed fracture (principal); E78.00 Pure hypercholesterolemia, unspecified; F41.9 Anxiety disorder, unspecified; Z79.899 Other long term (current) drug therapy; Z87.891 Personal history of nicotine dependence; Z98.51 Tubal ligation status; Z98.890 Other specified postprocedural states; Z86.711 Personal history of pulmonary embolism; Z86.2 Personal history of diseases of the blood and blood-forming organs and certain disorders involving the immune mechanism; Z88.8 Allergy status to other drugs, medicaments and biological substances; X58.XXXA Exposure to other specified factors, initial encounter; Y93.89 Activity, other specified; Y92.89 Other specified places as the place of occurrence of the external cause; Y99.8 Other external cause status
CPT/HCPCS: 23515; 36415; 64415; 73000; 81025; 85610; 85730; C1713; J0690; J1100; J1200; J1885; J2250; J2370; J2405; J2704; J2710; J2765; J2795; J3010; J7120

== ENCOUNTER 2020-06-02 09:50 | Outpatient (CLI) | payer BC ==
--- NOTE | 2020-06-02 10:50 | XRay Report ---
RIGHT SHOULDER 3 VIEWS INDICATION: S42.001AFracture of unspecified part of right clavicle, initial e. COMPARISON: 03/15/2020 IMPRESSION: The distal clavicle fracture has been internally fixated with metal plate and screws sin ce the previous exam. Alignment is anatomic, however fracture lines are still evident. There appears to be only minimal calcified callus beginning to bridge the fracture site. The remaining bony struct ures are intact. No significant joint pathology. Normal soft tissues. Signer Name: Merlin Kerr Jr, MD Signed: 06/02/2020 10:45 AM Workstation Name: [id number]
== END 2020-06-02 09:51 | disposition home or self-care (01) ==
LOC: XRAY 09:50
PROVIDERS: ATTEND Orthopaedic Surgery
DX: S42.031D Displaced fracture of lateral end of right clavicle, subsequent encounter for fracture with routine healing (principal); X58.XXXD Exposure to other specified factors, subsequent encounter

== ENCOUNTER 2020-06-16 06:17 | Outpatient (CLI) | payer BC ==
--- NOTE | 2020-06-16 08:20 | XRay Report ---
RIGHT SHOULDER 3 VIEWS INDICATION / CLINICAL INFORMATION: M25.5114 PAIN IN RIGHT SHOULDER. COMPARISON: None available. FINDINGS: ORIF of right clavicle fracture. No other significant skeletal abnormality Signer Name: Livan Harper MD FACR Signed: 06/16/2020 8:15 AM Workstation Name: [id number]
--- NOTE | 2020-06-16 08:20 | XRay Report ---
RIGHT CLAVICLE 2 VIEWS INDICATION / CLINICAL INFORMATION: S42.001AFracture of unspecified part of right clavicle, initial e. COMPARISON: None available. FINDINGS: ORIF of right clavicle fracture. There is some offset of the fracture fragments. No other significant skeletal abnormality. Signer Name: Livan Harper MD FACTeresita Signed: 06/16/2020 8:16 AM Workstation Name: [id number]
== END 2020-06-16 06:18 | disposition home or self-care (01) ==
LOC: XRAY 06:17
PROVIDERS: ATTEND Orthopaedic Surgery
DX: S42.001D Fracture of unspecified part of right clavicle, subsequent encounter for fracture with routine healing (principal); M25.511 Pain in right shoulder; X58.XXXD Exposure to other specified factors, subsequent encounter

== ENCOUNTER 2020-08-31 13:03 | Outpatient (CLI) | payer BC ==
--- NOTE | 2020-08-31 14:20 | XRay Report ---
RIGHT CLAVICLE 2 VIEWS INDICATION: Right clavicle pain. COMPARISON: 07/21/2020 IMPRESSION: The internally fixated distal right clavicle fracture is unchanged in position and align ment since 07/21/2020 exam. Fracture lines remain evident. Little, if any, signs of healing are demonst rated since the previous exam. No new acute bony process is appreciated. Signer Name: Merlin Kerr Jr, MD Signed: 08/31/2020 2:15 PM Workstation Name: [id number]
== END 2020-08-31 13:04 | disposition home or self-care (01) ==
LOC: XRAY 13:03
PROVIDERS: ATTEND Orthopaedic Surgery
DX: S42.031D Displaced fracture of lateral end of right clavicle, subsequent encounter for fracture with routine healing (principal); X58.XXXD Exposure to other specified factors, subsequent encounter

== ENCOUNTER 2020-10-13 09:26 | Outpatient (CLI) | payer BC ==
--- NOTE | 2020-10-13 10:31 | XRay Report ---
RIGHT CLAVICLE 2 VIEWS INDICATION: FRACTURE OF UNSPECIFIED PART OF RIGHT CLAVICLE. COMPARISON: Multiple previous exams with the most recent being 08/31/2020 IMPRESSION: The internally fixated distal right clavicle fracture is unchanged in position and align ment since 08/31/2020. Again fracture lines remain evident although bridging calcified callus appears slightly increased since the previous exam. No significant DJD. Signer Name: Merlin Kerr Jr, MD Signed: 10/13/2020 10:26 AM Workstation Name: [id number]
== END 2020-10-13 09:27 | disposition home or self-care (01) ==
LOC: XRAY 09:26
PROVIDERS: ATTEND Orthopaedic Surgery
DX: S42.001D Fracture of unspecified part of right clavicle, subsequent encounter for fracture with routine healing (principal); X58.XXXD Exposure to other specified factors, subsequent encounter